=== PATIENT | male | born 1980 | race African-American/Black ===

== ENCOUNTER 2016-11-22 19:02 | Emergency (ER) | payer SELFPAY ==
[~2016-11-22] VITALS: Ht 180.3 cm; Wt 81.6 kg
[2016-11-22 19:43] VITALS: BP 136/87
--- NOTE | 2016-11-22 20:24 | PHYS DOC ---
Past Medical History Past Medical History: No Pertinent History Past Surgical History: No Surgical History Alcohol Use: None Drug Use: None Adult General Chief Complaint Chief Complaint: KNEE INJURY HPI HPI Patient is a 36 year old male with no significant medical history who presents with mild left medial knee pain that began today after he fell playing baseball. Patient denies any loss of consciousness. Patient states his pain is worse on moving the knee medially. He is up and ambulating with no difficulties. Review of Systems Review of Systems Constitutional: Denies fever or chills [] Musculoskeletal: mild left medial knee pain Integument: Denies rash or skin lesions [] Neurologic: Denies headache, focal weakness or sensory changes [] Endocrine: Denies polyuria or polydipsia [] Allergies Allergies Allergies Coded Allergies Type Severity Reaction Last Updated Verified No Known Drug Allergies 11/22/16 No Physical Exam Physical Exam Constitutional: Well developed, well nourished, no acute distress, non-toxic appearance. [] Skin: Warm, dry, no erythema, no rash. [] Back: No tenderness, no CVA tenderness. [] Extremities: Left knee with mild soft tissue swelling. Tenderness on palpation of the left medial knee. Full range of motion to the left knee including negative Leanna sign and negative Colleen's sign negative anterior-posterior drawer sign. Patient able to stretch his left knee out and hold it. +2 left pedal pulse. Neurologic: Alert and oriented X 3, normal motor function, normal sensory function, no focal deficits noted. [] Psychologic: Affect normal, judgement normal, mood normal. [] Current Patient Data Vital Signs Vital Signs Date Time Temp Pulse Resp B/P (MAP) Pulse Ox O2 Delivery O2 Flow Rate FiO2 11/22/16 19:43 98.1 71 18 98 Room Air 98.1 EKG EKG [] Radiology/Procedures Radiology/Procedures []Left knee x-rays four views interpreted by Dr. Johnson were negative for any acute findings Course & Med Decision Making Course & Med Decision Making Pertinent Labs and Imaging studies reviewed. (See chart for details) Patient is in the ED with complaints of left knee pain after falling. Left knee x-rays four views interpreted by Dr. Johnson were negative for any acute findings. Patient was placed in a knee immobilizer by the botany technician, neurovascular exam done by me post-immobilizer application is normal. Ice elevation encouraged. Provided crutches in the ED. Discharged with Ultram for pain. Instructed to call orthopedic doctor tomorrow and set up a follow-up appointment. Evita Disclaimer Dragon Disclaimer This electronic medical record was generated, in whole or in part, using a voice recognition dictation system. Departure Departure Impression: Primary Impression: Fall from standing Additional Impression: Sprain of left knee Disposition: HOME, SELF-CARE Condition: STABLE Referrals: NO PCP (PCP) BELTRAN DONALD II, MD Follow-up in one week Patient Instructions: Fall Prevention and Home Safety, Knee Sprain Additional Instructions: You were seen for left knee sprain. Ice and elevate the extremity. Follow-up with orthopedic doctor provided by calling his office tomorrow morning for follow-up appointment. Keep the immobilizer on as tolerated. Scripts Tramadol Hcl (ULTRAM) 50 Mg Tablet 1 TAB PO Q6HRS, #30 TAB Prov: JERRY NGUYEN APRN 11/22/16 Problem Qualifiers Primary Impression: Fall from standing Encounter type: initial encounter Qualified Codes: W19.XXXA - Unspecified fall, initial encounter Additional Impression: Sprain of left knee Encounter type: initial encounter Involved ligament of knee: unspecified ligament Qualified Codes: S83.92XA - Sprain of unspecified site of left knee, initial encounter JERRY NGUYEN NETEZZA DEVELOPER Nov 22, 2016 20:24
[2016-11-22] MEDS ORDERED: TRAM-48 PO (20:33)
--- NOTE | 2016-11-23 07:56 | RAD ---
Left knee, 4 views, 11/22/2016: History: Pain, injury No fracture or dislocation is identified. No significant joint effusion is evident. IMPRESSION: No acute bony abnormality is detected.
== END 2016-11-22 20:51 | disposition home or self-care (01) ==
LOC: ER 19:02
DX: S83.92XA Sprain of unspecified site of left knee, initial encounter (principal); W17.89XA Other fall from one level to another, initial encounter; Y93.64 Activity, baseball; Y99.8 Other external cause status; Y92.89 Other specified places as the place of occurrence of the external cause
CPT/HCPCS: 29505; 73564; 99284-25

== ENCOUNTER 2017-02-12 09:16 | Emergency (ER) | payer SELFPAY ==
[~2017-02-12 09:16] MED LIST: TRAM-48 PO
[2017-02-12 10:29] LABS: BILIRUBIN,URINE NEGATIVE (NEG); GLUCOSE,URINE NEGATIVE (NEG); NITRITE,URINE NEGATIVE (NEG); PH,URINE 6.5; PROTEIN,URINE NEGATIVE (NEG-TRACE); UROBILINOGEN,URINE 0.2 mg/dL (0.2 mg/dL)
[2017-02-12 11:03] LABS: BACTERIA,URINE 0 /HPF (0-FEW); RBC,URINE 0 /HPF (0-2); WBC,URINE 0 /HPF (0-4)
--- NOTE | 2017-02-12 11:25 | PHYS DOC ---
Past Medical History Past Medical History: No Pertinent History Past Surgical History: No Surgical History Alcohol Use: None Drug Use: None Adult General Chief Complaint Chief Complaint: SEXUALLY TRANSMITTED DISEASE HPI HPI Patient is a 36 year old male with no significant medical history who presents requesting STD treatment. Patient states the partner called him and informed him she was treated for Trichomonas. Patient states he had a slight abdominal pain/discomfort and looked up the symptoms it was a sign of an STD. Review of Systems Review of Systems Constitutional: Denies fever or chills [] Eyes: Denies change in visual acuity, redness, or eye pain [] HENT: Denies nasal congestion or sore throat [] Respiratory: Denies cough or shortness of breath [] Cardiovascular: No additional information not addressed in HPI [] GI: abdominal pain/discomfort, concern for STD, denies, nausea, vomiting, bloody stools or diarrhea [] : Denies dysuria or hematuria [] Musculoskeletal: Denies back pain or joint pain [] Integument: Denies rash or skin lesions [] Neurologic: Denies headache, focal weakness or sensory changes [] Allergies Allergies Allergies Coded Allergies Type Severity Reaction Last Updated Verified No Known Drug Allergies 11/22/16 No Physical Exam Physical Exam Constitutional: Well developed, well nourished, no acute distress, non-toxic appearance. [] HENT: Normocephalic, atraumatic, bilateral external ears normal, oropharynx moist, no oral exudates, nose normal. [] Eyes: PERRLA, EOMI, conjunctiva normal, no discharge. [] Neck: Normal range of motion, no tenderness, supple, no stridor. [] Cardiovascular:Heart rate regular rhythm, no murmur [] Lungs & Thorax: Bilateral breath sounds clear to auscultation [] Abdomen: Bowel sounds normal, soft, no tenderness, no masses, no pulsatile masses. [] Skin: Warm, dry, no erythema, no rash. [] Back: No tenderness, no CVA tenderness. [] Extremities: No tenderness, no cyanosis, no clubbing, ROM intact, no edema. [] Neurologic: Alert and oriented X 3, normal motor function, normal sensory function, no focal deficits noted. [] Psychologic: Affect normal, judgement normal, mood normal. [] Current Patient Data Vital Signs Vital Signs Date Time Temp Pulse Resp B/P (MAP) Pulse Ox O2 Delivery O2 Flow Rate FiO2 02/12/17 10:04 98.0 59 18 121/92 (102) 98 Room Air 98.0 Lab Values Laboratory Tests Test 02/12/17 10:15 Urine Collection Type Unknown Urine Color Yellow Urine Clarity Clear Urine pH 6.5 Urine Specific [place] 1.020 Urine Protein Negative mg/dL (NEG-TRACE) Urine Glucose (UA) Negative mg/dL (NEG) Urine Ketones (Stick) Negative mg/dL (NEG) Urine Blood Negative (NEG) Urine Nitrite Negative (NEG) Urine Bilirubin Negative (NEG) Urine Urobilinogen Dipstick 0.2 mg/dL (0.2 mg/dL) Urine Leukocyte Esterase Negative (NEG) Urine RBC 0 /HPF (0-2) Urine WBC 0 /HPF (0-4) Urine Bacteria 0 /HPF (0-FEW) Urine Mucus Marked /LPF EKG EKG [] Radiology/Procedures Radiology/Procedures [] Course & Med Decision Making Course & Med Decision Making Pertinent Labs and Imaging studies reviewed. (See chart for details) This is a 36-year-old male patient who presents today with concern for STDs. Urine was sent to lab. Patient was given Flagyl Rocephin and azithromycin and discharged. Safe sex education provided. Dragon Disclaimer Dragon Disclaimer This electronic medical record was generated, in whole or in part, using a voice recognition dictation system. Departure Departure Impression: Primary Impression: Concern about STD in male without diagnosis Disposition: HOME, SELF-CARE Condition: STABLE Referrals: NO PCP (PCP) follow up with the healthdepartment for STD concerns Patient Instructions: Sexually Transmitted Disease Additional Instructions: You were seen with concern for STDs. You were treated in the ED for Trichomonas , gonorrhea and chlamydia. Do not have sex for a week. Contact all your sex partners, let them know you were treated for STDs and ask them to seek treatment too. JERRY NGUYEN APRN Feb 12, 2017 11:25
[2017-02-12] MEDS ORDERED: AZITHROMYCIN 250 MG TABLET. PO ONE (11:30)
[2017-02-12] MEDS ORDERED: metroNIDAZOLE 500 MG TABLET PO ONE (11:30)
[2017-02-12] MEDS ORDERED: cefTRIAXone IM 250 MG VIAL IM ONE (11:30)
[2017-02-12 11:36] VITALS: BP 140/94
== END 2017-02-12 11:53 | disposition home or self-care (01) ==
LOC: ER 09:16
DX: Z11.3 Encounter for screening for infections with a predominantly sexual mode of transmission (principal); R10.9 Unspecified abdominal pain
CPT/HCPCS: 81001; 87491; 87591; 96372; 99284; J0696; Q0144

== ENCOUNTER 2018-07-24 18:04 | Emergency (ER) | payer SELFPAY ==
[~2018-07-24] VITALS: Ht 180.3 cm; Wt 88.5 kg
--- NOTE | 2018-07-24 18:39 | PHYS DOC ---
Past Medical History Past Medical History: No Pertinent History Past Surgical History: No Surgical History Alcohol Use: None Drug Use: None Adult General Chief Complaint Chief Complaint: CHEST PAIN HPI HPI Patient is a 37 year old male with no previous medical history who presents with chest pain since Tuesday. Patient patient works as a trucking manager and says the pain started on Tuesday. He cannot think of any specific moment that caused the pain. Pain was intermittent on Tuesday however it has worsened throughout the weekend to the point that he decided to be evaluated today. Pain is located externally and radiates to his right arm. The pain is worsened when he moves the right arm. Pain is reproducible upon palpation of his chest. He has taken Tylenol with no relief. He denies any shortness of breath, cough, hemoptysis, lightheadedness, dizziness or diaphoresis.[] Review of Systems Review of Systems Constitutional: Denies fever or chills [] Eyes: Denies change in visual acuity, redness, or eye pain [] HENT: Denies nasal congestion or sore throat [] Respiratory: Denies cough or shortness of breath [] Cardiovascular: Denies chest pain or palpitation [] GI: Denies abdominal pain, nausea, vomiting, bloody stools or diarrhea [] Musculoskeletal: Denies back pain or joint pain [] Integument: Denies rash or skin lesions [] Neurologic: Denies headache, focal weakness or sensory changes [] Complete systems were reviewed and found to be within normal limits, except as documented in this note. Family History Family History Family history of heart disease and diabetes Current Medications Current Medications Current Medications Medications (Trade) Dose Ordered Sig/Cem Start Time Stop Time Status Last Admin Dose Admin Ketorolac Tromethamine (Toradol 15mg Vial) 15 mg 1X ONCE 07/24/18 18:45 07/24/18 18:46 DC 07/24/18 19:21 15 MG Potassium Chloride (Klor-Con) 40 meq 1X ONCE 07/24/18 20:15 07/24/18 20:16 DC 07/24/18 19:57 40 MEQ Sodium Chloride 1,000 ml @ 1,000 mls/hr 1X ONCE 07/24/18 18:45 07/24/18 19:44 DC 07/24/18 19:19 1,000 MLS/HR Allergies Allergies Allergies Coded Allergies Type Severity Reaction Last Updated Verified No Known Drug Allergies 11/22/16 No Physical Exam Physical Exam Constitutional: Well developed, well nourished, no acute distress, non-toxic appearance. [] HENT: Normocephalic, atraumatic, bilateral external ears normal, oropharynx moist, no oral exudates, nose normal. [] Eyes: PERRLA, EOMI, conjunctiva normal, no discharge. [] Neck: Normal range of motion, no tenderness, supple, no stridor. [] Cardiovascular:Heart rate regular rhythm, no murmur [] Lungs & Thorax: Bilateral breath sounds clear to auscultation. Pain upon palpation of the right sternal border. [] Abdomen: Bowel sounds normal, soft, no tenderness, no masses, no pulsatile masses. [] Skin: Warm, dry, no erythema, no rash. [] Back: No tenderness, no CVA tenderness. [] Extremities: No tenderness, no cyanosis, no clubbing, ROM intact, trace bilateral pretibial edema. [] Neurologic: Alert and oriented X 3, normal motor function, normal sensory function, no focal deficits noted. [] Psychologic: Affect normal, judgement normal, mood normal. [] Current Patient Data Vital Signs Vital Signs Date Time Temp Pulse Resp B/P (MAP) Pulse Ox O2 Delivery O2 Flow Rate FiO2 07/24/18 23:24 63 16 141/95 (110) 100 Room Air 07/24/18 18:10 97.9 97.9 Lab Values Laboratory Tests Test 07/24/18 18:50 07/24/18 22:00 White Blood Count 8.3 x10^3/uL (4.0-11.0) Red Blood Count 4.90 x10^6/uL (4.30-5.70) Hemoglobin 15.0 g/dL (13.0-17.5) Hematocrit 43.9 % (39.0-53.0) Mean Corpuscular Volume 90 fL (79-100) Mean Corpuscular Hemoglobin 31 pg (25-35) Mean Corpuscular Hemoglobin Concent 34 g/dL (31-37) Red Cell Distribution Width 12.6 % (11.5-14.5) Platelet Count 199 x10^3/uL (140-400) Neutrophils (%) (Auto) 60 % (31-73) Lymphocytes (%) (Auto) 31 % (24-48) Monocytes (%) (Auto) 8 % (0-9) Eosinophils (%) (Auto) 0 % (0-3) Basophils (%) (Auto) 1 % (0-3) Neutrophils # (Auto) 5.0 x10^3uL (1.8-7.7) Lymphocytes # (Auto) 2.6 x10^3/uL (1.0-4.8) Monocytes # (Auto) 0.7 x10^3/uL (0.0-1.1) Eosinophils # (Auto) 0.0 x10^3/uL (0.0-0.7) Basophils # (Auto) 0.0 x10^3/uL (0.0-0.2) Sodium Level 140 mmol/L (136-145) Potassium Level 3.2 mmol/L (3.5-5.1) L Chloride Level 101 mmol/L (98-107) Carbon Dioxide Level 29 mmol/L (21-32) Anion Gap 10 (6-14) Blood Urea Nitrogen 12 mg/dL (8-26) Creatinine 1.2 mg/dL (0.7-1.3) Estimated GFR (Cockcroft-Gault) 82.9 BUN/Creatinine Ratio 10 (6-20) Glucose Level 95 mg/dL (70-99) Calcium Level 9.0 mg/dL (8.5-10.1) Magnesium Level 1.9 mg/dL (1.8-2.4) Total Bilirubin 0.6 mg/dL (0.2-1.0) Aspartate Amino Transferase (AST) 28 U/L (15-37) Alanine Aminotransferase (ALT) 27 U/L (16-63) Alkaline Phosphatase 71 U/L (46-116) Creatine Kinase 651 U/L (39-308) H Creatine Kinase MB (Mass) 5.2 ng/mL (0.0-3.6) H Creatine Kinase MB Relative Index 0.8 % (0-4) Troponin I Quantitative < 0.017 ng/mL (0.000-0.055) < 0.017 ng/mL (0.000-0.055) ME-Atu-Q-Type Natriuretic Peptide 8 pg/mL (0-124) Total Protein 8.0 g/dL (6.4-8.2) Albumin 3.9 g/dL (3.4-5.0) Albumin/Globulin Ratio 1.0 (1.0-1.7) Lipase 140 U/L (73-393) Laboratory Tests 07/24/18 18:50 Laboratory Tests 07/24/18 18:50 EKG EKG At 1815 normal sinus rhythm at a rate of [address] elevation.[] Radiology/Procedures Radiology/Procedures PROCEDURE: CHEST PA & LATERAL CHEST PA LATERAL CLINICAL INDICATION: RIGHT SIDED CHEST PAIN X1 DAY COMPARISON: None FINDINGS: Heart is normal in size. Mild prominence of interstitium is seen bilaterally. No focal consolidation. No pneumothorax or pleural effusion. Visualized bony thorax is within normal limits. IMPRESSION: Mild prominence of interstitium bilaterally, nonspecific. Correlate for symptoms of viral infection. Electronically signed by: Shelton Marks DO (07/24/2018 7:24 PM) [facility] [] Course & Med Decision Making Course & Med Decision Making Patient presented with chest pain for 2 days. Pertinent labs and imaging were reviewed. Pain medication was provided with interval improvement. Potassium was replaced. 2 troponins were negative. (See chart for details) [] Dragon Disclaimer Dragon Disclaimer This electronic medical record was generated, in whole or in part, using a voice recognition dictation system. Departure Departure Impression: Primary Impression: Atypical chest pain Disposition: 01 HOME, SELF-CARE Condition: STABLE Referrals: NO PCP (PCP) Patient Instructions: Chest Pain (Nonspecific), [id number], Costochondritis, [id number] Scripts Prednisone (PREDNISONE) 20 Mg Tablet 2 TAB PO DAILY, #8 TAB Prov: CYNTHIA AGARWAL DO 07/24/18 CYNTHIA AGARWAL DO Jul 24, 2018 18:39
[2018-07-24] MEDS ORDERED: KETOROLAC 15 MG/ML VIAL. IV ONE (18:45)
[2018-07-24] MEDS ORDERED: IV NORMAL SALINE 1000ML BAG 1,000 ML IV ONE (18:45)
[2018-07-24 19:04] LABS: BASO % 1 % (0-3); EOS % 0 % (0-3); HEMATOCRIT 43.9 % (39.0-53.0); LYMPH # 2.6 x10^3/uL (1.0-4.8); LYMPH % 31 % (24-48); MEAN CORPUSCULAR HEMOGLOBIN 31 pg (25-35); MEAN CORPUSCULAR HGB CONC 34 g/dL (31-37); MEAN CORPUSCULAR VOLUME 90 fL (79-100); MONO # 0.7 x10^3/uL (0.0-1.1); MONO % 8 % (0-9); NEUT % 60 % (31-73); PLATELET COUNT 199 x10^3/uL (140-400); RED CELL DISTRIBUTION WIDTH 12.6 % (11.5-14.5); WHITE BLOOD COUNT 8.3 x10^3/uL (4.0-11.0)
[2018-07-24 19:17] LABS: CREATININE 1.2 mg/dL (0.7-1.3); GFR 82.9; POTASSIUM 3.2 mmol/L (3.5-5.1)
[2018-07-24 19:23] LABS: ALBUMIN 3.9 g/dL (3.4-5.0); MAGNESIUM 1.9 mg/dL (1.8-2.4); TOTAL BILIRUBIN 0.6 mg/dL (0.2-1.0)
--- NOTE | 2018-07-24 19:27 | RAD ---
CHEST PA LATERAL CLINICAL INDICATION: RIGHT SIDED CHEST PAIN X1 DAY COMPARISON: None FINDINGS: Heart is normal in size. Mild prominence of interstitium is seen bilaterally. No focal consolidation. No pneumothorax or pleural effusion. Visualized bony thorax is within normal limits. IMPRESSION: Mild prominence of interstitium bilaterally, nonspecific. Correlate for symptoms of viral infection. Electronically signed by: Shelton Marks DO (07/24/2018 7:24 PM) [facility]
[2018-07-24] MEDS ORDERED: POTASSIUM CHLORIDE 20 MEQ TABLET.ER. PO ONE (20:15)
[2018-07-24] MEDS ORDERED: PRED20TA PO (22:37)
[2018-07-24 23:24] VITALS: BP 141/95
--- NOTE | 2018-07-25 05:59 | EKG ---
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
== END 2018-07-24 23:36 | disposition home or self-care (01) ==
LOC: ER 18:04
DX: R07.89 Other chest pain (principal)
CPT/HCPCS: 36415; 71046; 80053; 82553; 83690; 83735; 83880; 84484; 85025; 93005; 96374; 99284; J1885; J7030